=== PATIENT | female | born 1985 | race Caucasian/White ===

== ENCOUNTER 2023-03-18 21:53 | Inpatient (IN) | payer BC ==
[~2023-03-18] VITALS: Ht 157.5 cm; Wt 93.7 kg
[2023-03-18 21:56] VITALS: PULSE 86; RESP 24
[2023-03-18] MEDS ORDERED: NOREPINEPHRINE 8MG/250ML PMX 250 ML IV PRN (22:15)
[2023-03-18] MEDS ORDERED: CALCIUM GLUCONATE 100MG/ML 10ML VIAL IV NR (22:30)
[2023-03-18] MEDS ORDERED: CALCIUM GLUCONATE 2,000 MG in DEXT 5% WATER 100 ML IV NR (23:00)
[2023-03-18 23:17] LABS: BG BASE EXCESS -20.5 mmol/L (-2.0-2.0); BG CARBOXYHEMOGLOBIN 0.3 % (0.5-1.5); BG DEOXYHEMOGLOBIN 0.5 % (0.0-5.0); BG FRACTION INSPIRED OXYGEN 100; BG HCO3 ACT 9.3 mmol/L (22.0-26.0); BG METHEMOGLOBIN 0.3 % (0.0-1.5); BG OXYGEN SATURATION 99.5 % (92.0-98.5); BG OXYHEMOGLOBIN 98.9 % (94.0-97.0); BG PCO2 35.3 mmHg (35.0-45.0); BG PH 7.039 (7.350-7.450); BG PO2 406.8 mmHg (75.0-100.0); BG SAMPLE SITE RIGHT RADIAL; BG TOTAL HEMOGLOBIN 13.8 g/dL (12.0-18.0); BG VENT MODE VENT - AC
[2023-03-18 23:19] LABS: BASOPHILS % 0.3 % (0.0-2.0); HEMATOCRIT. 40.6 % (36.0-48.0); HEMOGLOBIN. 12.7 g/dL (12.0-16.0); LYMPHOCYTES % 23.1 % (20.0-50.0); MEAN CORPUSCULAR HGB CONC 31.3 g/dL (31.0-37.0); MEAN CORPUSCULAR VOLUME 95.7 fL (81.0-99.0); MEAN PLATELET VOLUME 6.7 fl (7.4-10.4); MONOCYTES % 3.2 % (2.0-8.0); NEUTROPHILS % 72.4 % (40.0-76.0); PLATELET 336 x1000/uL (130-400); RED BLOOD CELL COUNT 4.24 mill/uL (4.2-5.4); RED CELL DISTRIBUTION WIDTH 15.1 % (11.6-14.6); WHITE BLOOD COUNT 19.1 x1000/uL (4.5-11.0)
[2023-03-18 23:26] LABS: CHLORIDE 109 mEq/L (98-107); INDEX HEMOLYSI 2 (1-3); INDEX ICTERIC 1 (1-4); INDEX LIPEMIC 1 (1-3); POTASSIUM 4.7 mEq/L (3.5-5.1); SODIUM 140 mEq/L (136-145)
[2023-03-18 23:30] LABS: INR 1.1; PARTIAL THROMBOPLASTIN TIME 36.9 sec (23.4-31.0); PROTHROMBIN TIME 11.9 sec (9.6-11.0)
[2023-03-18 23:37] LABS: ALANINE AMINOTRANSFERASE 286 IU/L (13-61); ASPARTATE AMINOTRANSFERASE 583 IU/L (15-37); BILIRUBIN TOTAL 0.2 mg/dL (0.1-1.0); CALCIUM 6.8 mg/dL (8.5-10.1); CARBON DIOXIDE 12 mEq/L (21-32); CREATININE 1.2 mg/dL (0.6-1.3); PHOSPHORUS 6.4 mg/dL (2.5-4.9); PROTEIN TOTAL 6.7 g/dL (6.0-8.3); TROPONIN I HIGH SENSITIVITY 27 ng/L (<54); UREA NITROGEN BLOOD 11 mg/dL (7-21)
[2023-03-19] VITALS (99 sets, daily range): BP systolic 59–146; BP diastolic 21–106; PULSE 68–116; RESP 25–30; TEMP 88.2–99.2
[2023-03-19 00:01] LABS: HCG SCREEN NEGATIVE
[2023-03-19 00:29] LABS: GLUCOSE 411 mg/dL (70-105); LACTIC ACID 12.4 mmol/L (0.4-2.0)
[2023-03-19] MEDS ORDERED: ACETAMINOPHEN 650MG/20.3ML UDC GT PRN ×2 (02:30)
[2023-03-19] MEDS ORDERED: DIPHENHYDRAMINE 50MG/ML VIAL IV PRN (02:30)
[2023-03-19] MEDS ORDERED: DEXTROSE 50% WATER 50ML SYRINGE IV PRN ×2 (02:30→05:00)
[2023-03-19] MEDS ORDERED: PIPERACILLIN/TAZ 3.375G PREMIX 50 ML IV NR (02:30)
[2023-03-19] MEDS ORDERED: IPRATROPIUM/ALBUTEROL 0.5-3(2.5)MG/3ML NEB NEB PRN (02:30)
[2023-03-19] MEDS ORDERED: VANCOMYCIN 1G PREMIX 200 ML IV SCH ×2 (02:30→18:00)
[2023-03-19] MEDS ORDERED: BLOOD SUGAR DIAGNOSTIC STRIP TEST SCH (02:30)
[2023-03-19] MEDS ORDERED: ONDANSETRON HCL 4MG/2ML INJ IV PRN (02:30)
[2023-03-19] MEDS ORDERED: WATER IV PRN (03:00)
[2023-03-19] MEDS ORDERED: VANCOMYCIN 2,000 MG in DEXT 5% WATER 500 ML IV NR (03:00)
[2023-03-19] MEDS ORDERED: SODIUM PHOS M BASIC D BASIC IV PRN (03:00)
[2023-03-19] MEDS ORDERED: NOREPINEPHRINE 8 MG in DEXT 5% WATER 242 ML IV PRN (03:00)
[2023-03-19] MEDS ORDERED: CALCIUM GLUCONATE 2,000 MG in DEXT 5% WATER 80 ML IV PRN (03:00)
[2023-03-19] MEDS ORDERED: MAGNESIUM 2 G PREMIX 50 ML IV PRN (03:00)
[2023-03-19] MEDS ORDERED: KCL 20MEQ/100ML PREMIX 100 ML IV PRN (03:00)
[2023-03-19] MEDS ORDERED: ACETAMINOPHEN 650MG SUPP PR PRN (03:00)
[2023-03-19] MEDS ORDERED: DEXT IV PRN (03:00)
[2023-03-19] MEDS ORDERED: POTASSIUM CHLORIDE INJ 40 MEQ in DEXT 5% WATER 250 ML IV PRN (03:00)
[2023-03-19] MEDS: SODIUM CHLORIDE 0.9% 1,000 ML IV SCH ×3 (03:28→22:04)
[2023-03-19] MEDS ORDERED: INSULIN LISPRO 100 UNITS/ML SUBCUT SCH ×4 (03:30→08:20)
[2023-03-19] MEDS: PIPERACILLIN/TAZOBACTAM 3.375G in DEXT 5% WATER 50ML IV SCH ×3 (03:31→22:04)
[2023-03-19 03:43] LABS: MEAN CORPUSCULAR HEMOGLOBIN 29.6 pg (28.0-32.0); MEAN CORPUSCULAR HGB CONC 31.8 g/dL (31.0-37.0); MEAN CORPUSCULAR VOLUME 92.9 fL (81.0-99.0); MEAN PLATELET VOLUME 6.9 fl (7.4-10.4); PLATELET 330 x1000/uL (130-400); RED BLOOD CELL COUNT 4.73 mill/uL (4.2-5.4); RED CELL DISTRIBUTION WIDTH 14.9 % (11.6-14.6); WHITE BLOOD COUNT 14.9 x1000/uL (4.5-11.0)
[2023-03-19 03:49] LABS: DIFFERENTIAL COMMENT 1
[2023-03-19 03:56] LABS: ALANINE AMINOTRANSFERASE 332 IU/L (13-61); ALBUMIN 3.3 g/dL (3.4-5.0); ASPARTATE AMINOTRANSFERASE 769 IU/L (15-37); BILIRUBIN TOTAL 1.3 mg/dL (0.1-1.0); CALCIUM 7.4 mg/dL (8.5-10.1); CARBON DIOXIDE 17 mEq/L (21-32); CHLORIDE 112 mEq/L (98-107); CREATININE 1.4 mg/dL (0.6-1.3); GLUCOSE 351 mg/dL (70-105); INDEX HEMOLYSI 2 (1-3); INDEX ICTERIC 1 (1-4); INDEX LIPEMIC 1 (1-3); POTASSIUM 3.8 mEq/L (3.5-5.1); PROTEIN TOTAL 7.1 g/dL (6.0-8.3); SODIUM 142 mEq/L (136-145); UREA NITROGEN BLOOD 17 mg/dL (7-21)
[2023-03-19 04:11] LABS: PHOSPHORUS 0.7 mg/dL (2.5-4.9); TROPONIN I HIGH SENSITIVITY 204 ng/L (<54)
[2023-03-19 04:23] LABS: INR 1.2; PARTIAL THROMBOPLASTIN TIME 28.4 sec (23.4-31.0); PROTHROMBIN TIME 12.7 sec (9.6-11.0)
[2023-03-19] MEDS ORDERED: SODIUM BICARBONATE 8.4% 1 MEQ/ML 50ML SYR IV NR (05:30)
[2023-03-19] MEDS: BLOOD SUGAR DIAGNOSTIC STRIP TEST SCH ×5 (05:45→22:04)
[2023-03-19] MEDS: DEXAMETHASONE 10 MG/ML VIAL IV SCH ×3 (06:08→18:07)
[2023-03-19] MEDS ORDERED: MANNITOL 12.5G (25%) VIAL 50ML IV ONE (06:30)
[2023-03-19 08:06] LABS: CLARITY URINE CLOUDY (CLEAR); COLOR URINE YELLOW (YELLOW); GLUCOSE URINE 3+ (NEGATIVE); KETONES URINE NEGATIVE (NEGATIVE); LEUKOCYTE ESTERASE URINE NEGATIVE (NEGATIVE); NITRITE URINE NEGATIVE (NEGATIVE); OCCULT BLOOD URINE 2+ (NEGATIVE); PH URINE 5.5 (4.5-8.0); PROTEIN URINE 2+ (NEGATIVE); SPECIFIC GRAVITY URINE 1.011 (1.005-1.030); UROBILINOGEN URINE 0.2 E.U./dL (0.2-1.0)
[2023-03-19 08:08] LABS: BACTERIA URINE NONE SEEN; SQUAMOUS EPITHELIAL CELL URINE 2+ /lpf (RARE/1+); YEAST URINE NONE SEEN
[2023-03-19 08:37] LABS: BG BASE EXCESS -8.9 mmol/L (-2.0-2.0); BG CARBOXYHEMOGLOBIN 0.4 % (0.5-1.5); BG DEOXYHEMOGLOBIN 0.6 % (0.0-5.0); BG FRACTION INSPIRED OXYGEN 60; BG METHEMOGLOBIN 0.3 % (0.0-1.5); BG OXYGEN SATURATION 99.4 % (92.0-98.5); BG OXYHEMOGLOBIN 98.7 % (94.0-97.0); BG PCO2 23.8 mmHg (35.0-45.0); BG PH 7.387 (7.350-7.450); BG PO2 237.4 mmHg (75.0-100.0); BG SAMPLE SITE RIGHT BRACHIAL; BG TOTAL HEMOGLOBIN 14.6 g/dL (12.0-18.0); BG VENT MODE VENT - AC
[2023-03-19] MEDS: PANTOPRAZOLE SODIUM 40 MG/VIAL IV SCH (09:52)
[2023-03-19 10:31] LABS: *AMPHETAMINES SCREEN URINE NEGATIVE (NEGATIVE); *BARBITURATES SCREEN URINE NEGATIVE (NEGATIVE); *BENZODIAZEPINES SCREEN URINE NEGATIVE (NEGATIVE); *COCAINE SCREEN URINE NEGATIVE (NEGATIVE); CANNABINOID URINE SCREEN NEGATIVE (NEGATIVE); ECSTASY MDMA SCREEN URINE NEGATIVE (NEGATIVE); OPIATES URINE SCREEN NEGATIVE (NEGATIVE); PHENCYCLIDINE URINE SCREEN NEGATIVE (NEGATIVE)
[2023-03-19] MEDS: NOREPINEPHRINE 8MG/250ML PMX 250ML IV PRN (10:51)
[2023-03-19] MEDS: INSULIN LISPRO 100 UNITS/ML SUBCUT SCH ×2 (12:00→18:00)
[2023-03-19] MEDS ORDERED: PIPERACILLIN/TAZOBACTAM 3.375G in DEXT 5% WATER 50ML IV SCH (14:00)
[2023-03-19] MEDS ORDERED: SODIUM PHOS,M-BASIC-D-BASIC 30 MM in DEXT 5% WATER 500 ML IV NR (17:00)
[2023-03-19 17:32] LABS: PLATELET ESTIMATE NORMAL
[2023-03-19] MEDS ORDERED: VANCOMYCIN 750MG PREMIX 150 ML IV SCH (18:00)
[2023-03-19 20:25] LABS: BG BASE EXCESS -5.8 mmol/L (-2.0-2.0); BG DEOXYHEMOGLOBIN 1.7 % (0.0-5.0); BG FRACTION INSPIRED OXYGEN 40; BG HCO3 ACT 15.4 mmol/L (22.0-26.0); BG OXYGEN SATURATION 98.3 % (92.0-98.5); BG OXYHEMOGLOBIN 98.3 % (94.0-97.0); BG PCO2 20.6 mmHg (35.0-45.0); BG PH 7.491 (7.350-7.450); BG PO2 123.2 mmHg (75.0-100.0); BG SAMPLE SITE ALINE; BG TOTAL HEMOGLOBIN 12.7 g/dL (12.0-18.0); BG TOTAL RESPIRATORY RATE 30 b/min; BG VENT MODE VENT - AC
[2023-03-19] MEDS ORDERED: ENOXAPARIN 30MG/0.3ML SYR SUBCUT SCH (21:00)
[2023-03-19 21:12] LABS: HEMATOCRIT. 35.7 % (36.0-48.0); MEAN CORPUSCULAR HEMOGLOBIN 30.3 pg (28.0-32.0); MEAN CORPUSCULAR HGB CONC 33.6 g/dL (31.0-37.0); MEAN PLATELET VOLUME 6.3 fl (7.4-10.4); PLATELET 166 x1000/uL (130-400); RED BLOOD CELL COUNT 3.97 mill/uL (4.2-5.4); RED CELL DISTRIBUTION WIDTH 14.2 % (11.6-14.6); WHITE BLOOD COUNT 9.1 x1000/uL (4.5-11.0)
[2023-03-19 21:15] LABS: DIFFERENTIAL COMMENT 1
[2023-03-19 21:22] LABS: CHLORIDE 113 mEq/L (98-107); INDEX HEMOLYSI 1 (1-3); INDEX ICTERIC 1 (1-4); INDEX LIPEMIC 1 (1-3); POTASSIUM 3.5 mEq/L (3.5-5.1); SODIUM 142 mEq/L (136-145)
[2023-03-19 21:33] LABS: INR 1.1; PARTIAL THROMBOPLASTIN TIME 32.2 sec (23.4-31.0); PROTHROMBIN TIME 11.9 sec (9.6-11.0)
[2023-03-19 21:35] LABS: PLATELET ESTIMATE NORMAL
[2023-03-19 21:36] LABS: ALANINE AMINOTRANSFERASE 221 IU/L (13-61); ALBUMIN 2.6 g/dL (3.4-5.0); AMYLASE 209 IU/L (25-115); ASPARTATE AMINOTRANSFERASE 399 IU/L (15-37); BILIRUBIN DIRECT 0.3 mg/dL (0.0-0.2); BILIRUBIN TOTAL 0.9 mg/dL (0.1-1.0); CALCIUM 6.9 mg/dL (8.5-10.1); CARBON DIOXIDE 17 mEq/L (21-32); GLUCOSE 235 mg/dL (70-105); LACTATE DEHYDROGENASE 734 IU/L (100-240); PROTEIN TOTAL 5.7 g/dL (6.0-8.3); UREA NITROGEN BLOOD 33 mg/dL (7-21)
[2023-03-19 21:47] LABS: LACTIC ACID 5.6 mmol/L (0.4-2.0)
[2023-03-20] VITALS (85 sets, daily range): BP systolic 72–120; BP diastolic 31–93; PULSE 92–128; RESP 0–30; TEMP 97.4–99.4; O2SAT 100
[2023-03-20] MEDS: BLOOD SUGAR DIAGNOSTIC STRIP TEST SCH ×10 (00:05→18:15)
[2023-03-20 00:26] LABS: CLARITY URINE CLOUDY (CLEAR); COLOR URINE YELLOW (YELLOW); GLUCOSE URINE TRACE (NEGATIVE); KETONES URINE NEGATIVE (NEGATIVE); LEUKOCYTE ESTERASE URINE TRACE (NEGATIVE); NITRITE URINE NEGATIVE (NEGATIVE); OCCULT BLOOD URINE 1+ (NEGATIVE); PROTEIN URINE 2+ (NEGATIVE); SPECIFIC GRAVITY URINE 1.012 (1.005-1.030)
[2023-03-20] MEDS: DEXAMETHASONE 10 MG/ML VIAL IV SCH ×4 (00:32→17:03)
[2023-03-20] MEDS: INSULIN LISPRO 100 UNITS/ML SUBCUT SCH ×11 (00:35→18:36)
[2023-03-20 00:40] LABS: BASOPHILS % 0.3 % (0.0-2.0); EOSINOPHILS % 0.1 % (0.0-5.0); HEMATOCRIT. 33.8 % (36.0-48.0); HEMOGLOBIN. 11.6 g/dL (12.0-16.0); LYMPHOCYTES % 5.1 % (20.0-50.0); MEAN CORPUSCULAR HEMOGLOBIN 30.3 pg (28.0-32.0); MEAN CORPUSCULAR HGB CONC 34.3 g/dL (31.0-37.0); MEAN CORPUSCULAR VOLUME 88.4 fL (81.0-99.0); MEAN PLATELET VOLUME 6.3 fl (7.4-10.4); MONOCYTES % 6.5 % (2.0-8.0); PLATELET 127 x1000/uL (130-400); RED BLOOD CELL COUNT 3.82 mill/uL (4.2-5.4); RED CELL DISTRIBUTION WIDTH 14.5 % (11.6-14.6); WHITE BLOOD COUNT 10.3 x1000/uL (4.5-11.0)
[2023-03-20 00:43] LABS: DIFFERENTIAL COMMENT 1
[2023-03-20 00:50] LABS: BACTERIA URINE 2+; CALCIUM OXALATE CRYSTALS URINE 1+ /lpf; RBC URINE 0-2 /hpf (0-2); SQUAMOUS EPITHELIAL CELL URINE 1+ /lpf (RARE/1+)
[2023-03-20 00:50] LABS: INDEX HEMOLYSI 1 (1-3); INDEX ICTERIC 1 (1-4); INDEX LIPEMIC 1 (1-3)
[2023-03-20 01:19] LABS: LACTIC ACID 3.6 mmol/L (0.4-2.0)
[2023-03-20 01:39] LABS: ALANINE AMINOTRANSFERASE 205 IU/L (13-61); ALBUMIN 2.6 g/dL (3.4-5.0); AMYLASE 175 IU/L (25-115); ASPARTATE AMINOTRANSFERASE 323 IU/L (15-37); BILIRUBIN DIRECT 0.2 mg/dL (0.0-0.2); BILIRUBIN TOTAL 0.8 mg/dL (0.1-1.0); CALCIUM 6.8 mg/dL (8.5-10.1); CARBON DIOXIDE 23 mEq/L (21-32); CHLORIDE 114 mEq/L (98-107); CREATININE 2.5 mg/dL (0.6-1.3); GLUCOSE 196 mg/dL (70-105); LACTATE DEHYDROGENASE 696 IU/L (100-240); PHOSPHORUS 1.6 mg/dL (2.5-4.9); POTASSIUM 3.8 mEq/L (3.5-5.1); PROTEIN TOTAL 5.7 g/dL (6.0-8.3); SODIUM 144 mEq/L (136-145); UREA NITROGEN BLOOD 34 mg/dL (7-21)
[2023-03-20 01:44] LABS: INR 1.1; PARTIAL THROMBOPLASTIN TIME 31.6 sec (23.4-31.0); PROTHROMBIN TIME 11.9 sec (9.6-11.0)
[2023-03-20 02:20] LABS: BG BASE EXCESS -10.1 mmol/L (-2.0-2.0); BG CARBOXYHEMOGLOBIN 0.3 % (0.5-1.5); BG DEOXYHEMOGLOBIN 2.7 % (0.0-5.0); BG FRACTION INSPIRED OXYGEN 40; BG HCO3 ACT 11.1 mmol/L (22.0-26.0); BG METHEMOGLOBIN 0.3 % (0.0-1.5); BG OXYGEN SATURATION 97.3 % (92.0-98.5); BG OXYHEMOGLOBIN 96.7 % (94.0-97.0); BG PCO2 13.2 mmHg (35.0-45.0); BG PH 7.543 (7.350-7.450); BG SAMPLE SITE ALINE; BG TOTAL HEMOGLOBIN 6.9 g/dL (12.0-18.0); BG TOTAL RESPIRATORY RATE 30 b/min; BG VENT MODE VENT - AC
[2023-03-20] MEDS: NOREPINEPHRINE 8MG/250ML PMX 250ML IV PRN ×2 (04:50→18:38)
[2023-03-20] MEDS: PIPERACILLIN/TAZOBACTAM 3.375G in DEXT 5% WATER 50ML IV SCH ×2 (05:48→14:57)
[2023-03-20 06:19] LABS: CLARITY URINE TURBID (CLEAR); COLOR URINE YELLOW (YELLOW); GLUCOSE URINE TRACE (NEGATIVE); KETONES URINE NEGATIVE (NEGATIVE); LEUKOCYTE ESTERASE URINE 1+ (NEGATIVE); NITRITE URINE NEGATIVE (NEGATIVE); OCCULT BLOOD URINE 1+ (NEGATIVE); PH URINE 5.5 (4.5-8.0); PROTEIN URINE 2+ (NEGATIVE); SPECIFIC GRAVITY URINE 1.013 (1.005-1.030); UROBILINOGEN URINE 0.2 E.U./dL (0.2-1.0)
[2023-03-20 06:29] LABS: INR 1.1; PARTIAL THROMBOPLASTIN TIME 30.8 sec (23.4-31.0); PROTHROMBIN TIME 11.8 sec (9.6-11.0)
[2023-03-20 06:30] LABS: CHLORIDE 115 mEq/L (98-107); INDEX HEMOLYSI 1 (1-3); INDEX ICTERIC 1 (1-4); INDEX LIPEMIC 1 (1-3); SODIUM 144 mEq/L (136-145)
[2023-03-20 06:38] LABS: ALANINE AMINOTRANSFERASE 192 IU/L (13-61); ALBUMIN 2.6 g/dL (3.4-5.0); AMYLASE 146 IU/L (25-115); ASPARTATE AMINOTRANSFERASE 260 IU/L (15-37); BILIRUBIN DIRECT 0.3 mg/dL (0.0-0.2); BILIRUBIN TOTAL 0.9 mg/dL (0.1-1.0); CALCIUM 6.6 mg/dL (8.5-10.1); CARBON DIOXIDE 20 mEq/L (21-32); GLUCOSE 204 mg/dL (70-105); LACTATE DEHYDROGENASE 698 IU/L (100-240); PHOSPHORUS 2.6 mg/dL (2.5-4.9); PROTEIN TOTAL 5.9 g/dL (6.0-8.3); UREA NITROGEN BLOOD 39 mg/dL (7-21)
[2023-03-20 06:44] LABS: HEMATOCRIT. 36.4 % (36.0-48.0); HEMOGLOBIN. 12.1 g/dL (12.0-16.0); MEAN CORPUSCULAR HGB CONC 33.3 g/dL (31.0-37.0); MEAN PLATELET VOLUME 7.2 fl (7.4-10.4); PLATELET 144 x1000/uL (130-400); RED BLOOD CELL COUNT 4.04 mill/uL (4.2-5.4); RED CELL DISTRIBUTION WIDTH 14.9 % (11.6-14.6); WHITE BLOOD COUNT 15.9 x1000/uL (4.5-11.0)
[2023-03-20 06:45] LABS: BACTERIA URINE 3+; SQUAMOUS EPITHELIAL CELL URINE 1+ /lpf (RARE/1+); WBC URINE 15-25 /hpf (0-2)
[2023-03-20 07:18] LABS: DIFFERENTIAL COMMENT 1
[2023-03-20] MEDS: PANTOPRAZOLE SODIUM 40 MG/VIAL IV SCH (08:41)
[2023-03-20 08:42] LABS: BG BASE EXCESS -8.5 mmol/L (-2.0-2.0); BG CARBOXYHEMOGLOBIN 0.5 % (0.5-1.5); BG DEOXYHEMOGLOBIN 4.3 % (0.0-5.0); BG FRACTION INSPIRED OXYGEN 40; BG HCO3 ACT 16.4 mmol/L (22.0-26.0); BG METHEMOGLOBIN 0.1 % (0.0-1.5); BG OXYGEN SATURATION 95.7 % (92.0-98.5); BG OXYHEMOGLOBIN 95.1 % (94.0-97.0); BG PCO2 32.5 mmHg (35.0-45.0); BG PH 7.322 (7.350-7.450); BG PO2 88.3 mmHg (75.0-100.0); BG SAMPLE SITE ALINE; BG TOTAL HEMOGLOBIN 12.5 g/dL (12.0-18.0); BG VENT MODE VENT - AC
[2023-03-20] MEDS: SODIUM CHLORIDE 0.9% 1,000 ML IV SCH ×2 (08:42→18:30)
[2023-03-20] MEDS ORDERED: SODIUM BICARBONATE 8.4% 1 MEQ/ML 50ML SYR IV NR ×2 (09:00→12:00)
[2023-03-20 10:33] LABS: BG CARBOXYHEMOGLOBIN 0.3 % (0.5-1.5); BG FRACTION INSPIRED OXYGEN 100; BG HCO3 ACT 22.9 mmol/L (22.0-26.0); BG METHEMOGLOBIN 0.3 % (0.0-1.5); BG OXYHEMOGLOBIN 97.4 % (94.0-97.0); BG PCO2 39.8 mmHg (35.0-45.0); BG PH 7.378 (7.350-7.450); BG SAMPLE SITE ALINE; BG TOTAL HEMOGLOBIN 11.7 g/dL (12.0-18.0); BG VENT MODE VENT - AC
[2023-03-20 11:25] LABS: LACTIC ACID 2.3 mmol/L (0.4-2.0)
[2023-03-20 11:41] LABS: BG BASE EXCESS -5.2 mmol/L (-2.0-2.0); BG CARBOXYHEMOGLOBIN 0.1 % (0.5-1.5); BG FRACTION INSPIRED OXYGEN 100; BG HCO3 ACT 19.9 mmol/L (22.0-26.0); BG METHEMOGLOBIN 0.1 % (0.0-1.5); BG OXYHEMOGLOBIN 98.8 % (94.0-97.0); BG PH 7.348 (7.350-7.450); BG PO2 213.8 mmHg (75.0-100.0); BG SAMPLE SITE ALINE; BG TOTAL HEMOGLOBIN 12.2 g/dL (12.0-18.0); BG VENT MODE VENT - AC
[2023-03-20 12:16] LABS: HEMATOCRIT. 32.8 % (36.0-48.0); HEMOGLOBIN. 10.8 g/dL (12.0-16.0); MEAN CORPUSCULAR HEMOGLOBIN 29.7 pg (28.0-32.0); MEAN CORPUSCULAR HGB CONC 33.1 g/dL (31.0-37.0); MEAN CORPUSCULAR VOLUME 89.9 fL (81.0-99.0); MEAN PLATELET VOLUME 7.2 fl (7.4-10.4); PLATELET 125 x1000/uL (130-400); RED BLOOD CELL COUNT 3.64 mill/uL (4.2-5.4); WHITE BLOOD COUNT 18.4 x1000/uL (4.5-11.0)
[2023-03-20 12:22] LABS: INR 1.1; PARTIAL THROMBOPLASTIN TIME 29.4 sec (23.4-31.0); PROTHROMBIN TIME 11.4 sec (9.6-11.0)
[2023-03-20 12:24] LABS: BG BASE EXCESS -7.4 mmol/L (-2.0-2.0); BG CARBOXYHEMOGLOBIN 0.3 % (0.5-1.5); BG DEOXYHEMOGLOBIN 1.4 % (0.0-5.0); BG FRACTION INSPIRED OXYGEN 44; BG HCO3 ACT 22.7 mmol/L (22.0-26.0); BG METHEMOGLOBIN 0.2 % (0.0-1.5); BG OXYGEN SATURATION 98.6 % (92.0-98.5); BG OXYHEMOGLOBIN 98.1 % (94.0-97.0); BG PCO2 70.4 mmHg (35.0-45.0); BG PH 7.127 (7.350-7.450); BG PO2 203.8 mmHg (75.0-100.0); BG SAMPLE SITE ALINE; BG TOTAL HEMOGLOBIN 12.3 g/dL (12.0-18.0); BG VENT MODE NASAL CANNULA
[2023-03-20 12:28] LABS: DIFFERENTIAL COMMENT 1
[2023-03-20 12:35] LABS: CHLORIDE 114 mEq/L (98-107); INDEX HEMOLYSI 1 (1-3); INDEX ICTERIC 1 (1-4); INDEX LIPEMIC 1 (1-3); POTASSIUM 4.5 mEq/L (3.5-5.1); SODIUM 145 mEq/L (136-145)
[2023-03-20 12:39] LABS: CLARITY URINE TURBID (CLEAR); COLOR URINE YELLOW (YELLOW); GLUCOSE URINE NEGATIVE (NEGATIVE); KETONES URINE NEGATIVE (NEGATIVE); LEUKOCYTE ESTERASE URINE 2+ (NEGATIVE); NITRITE URINE NEGATIVE (NEGATIVE); OCCULT BLOOD URINE 1+ (NEGATIVE); PROTEIN URINE 1+ (NEGATIVE); SPECIFIC GRAVITY URINE 1.016 (1.005-1.030)
[2023-03-20 12:46] LABS: ALANINE AMINOTRANSFERASE 170 IU/L (13-61); ALBUMIN 2.5 g/dL (3.4-5.0); AMYLASE 90 IU/L (25-115); ASPARTATE AMINOTRANSFERASE 244 IU/L (15-37); BILIRUBIN DIRECT 0.2 mg/dL (0.0-0.2); BILIRUBIN TOTAL 0.5 mg/dL (0.1-1.0); CALCIUM 6.2 mg/dL (8.5-10.1); CARBON DIOXIDE 23 mEq/L (21-32); CREATININE 3.6 mg/dL (0.6-1.3); GLUCOSE 206 mg/dL (70-105); LACTATE DEHYDROGENASE 699 IU/L (100-240); PHOSPHORUS 3.9 mg/dL (2.5-4.9); PROTEIN TOTAL 5.8 g/dL (6.0-8.3); UREA NITROGEN BLOOD 45 mg/dL (7-21)
[2023-03-20 13:12] LABS: BACTERIA URINE 3+; SQUAMOUS EPITHELIAL CELL URINE NONE SEEN /lpf (RARE/1+)
[2023-03-20 13:13] LABS: WBC URINE 15-25 /hpf (0-2)
[2023-03-20 13:32] LABS: PLATELET ESTIMATE NORMAL
[2023-03-20 13:48] LABS: PLATELET ESTIMATE NORMAL
[2023-03-20 18:43] LABS: BG BASE EXCESS -4.2 mmol/L (-2.0-2.0); BG CARBOXYHEMOGLOBIN 0.3 % (0.5-1.5); BG DEOXYHEMOGLOBIN 0.9 % (0.0-5.0); BG FRACTION INSPIRED OXYGEN 100; BG HCO3 ACT 20.3 mmol/L (22.0-26.0); BG METHEMOGLOBIN 0.1 % (0.0-1.5); BG OXYGEN SATURATION 99.1 % (92.0-98.5); BG OXYHEMOGLOBIN 98.7 % (94.0-97.0); BG PCO2 35.1 mmHg (35.0-45.0); BG PO2 349.1 mmHg (75.0-100.0); BG SAMPLE SITE ALINE; BG TOTAL HEMOGLOBIN 11.4 g/dL (12.0-18.0); BG VENT MODE VENT - AC
[2023-03-20 19:09] LABS: HEMATOCRIT. 30.4 % (36.0-48.0); MEAN CORPUSCULAR HEMOGLOBIN 29.6 pg (28.0-32.0); MEAN CORPUSCULAR VOLUME 89.5 fL (81.0-99.0); MEAN PLATELET VOLUME 7.7 fl (7.4-10.4); PLATELET 114 x1000/uL (130-400); RED BLOOD CELL COUNT 3.39 mill/uL (4.2-5.4); RED CELL DISTRIBUTION WIDTH 15.1 % (11.6-14.6); WHITE BLOOD COUNT 18.1 x1000/uL (4.5-11.0)
[2023-03-20 19:10] LABS: DIFFERENTIAL COMMENT 1
[2023-03-20 19:14] LABS: CLARITY URINE TURBID (CLEAR); COLOR URINE YELLOW (YELLOW); GLUCOSE URINE NEGATIVE (NEGATIVE); KETONES URINE NEGATIVE (NEGATIVE); LEUKOCYTE ESTERASE URINE 2+ (NEGATIVE); NITRITE URINE NEGATIVE (NEGATIVE); OCCULT BLOOD URINE 2+ (NEGATIVE); PROTEIN URINE 1+ (NEGATIVE); UROBILINOGEN URINE 0.2 E.U./dL (0.2-1.0)
[2023-03-20 19:18] LABS: CARBON DIOXIDE 23 mEq/L (21-32); CHLORIDE 115 mEq/L (98-107); INDEX HEMOLYSI 1 (1-3); INDEX ICTERIC 1 (1-4); INDEX LIPEMIC 1 (1-3); POTASSIUM 4.7 mEq/L (3.5-5.1); SODIUM 146 mEq/L (136-145)
[2023-03-20 19:21] LABS: INR 1.1; PARTIAL THROMBOPLASTIN TIME 30.5 sec (23.4-31.0); PROTHROMBIN TIME 11.4 sec (9.6-11.0)
[2023-03-20 19:23] LABS: ALANINE AMINOTRANSFERASE 151 IU/L (13-61); ALBUMIN 2.4 g/dL (3.4-5.0); AMYLASE 60 IU/L (25-115); ASPARTATE AMINOTRANSFERASE 263 IU/L (15-37); BILIRUBIN DIRECT 0.1 mg/dL (0.0-0.2); GLUCOSE 200 mg/dL (70-105); PHOSPHORUS 3.6 mg/dL (2.5-4.9); PROTEIN TOTAL 5.5 g/dL (6.0-8.3); UREA NITROGEN BLOOD 48 mg/dL (7-21)
[2023-03-20 19:26] LABS: BILIRUBIN TOTAL 0.4 mg/dL (0.1-1.0); CREATININE 4.1 mg/dL (0.6-1.3); LACTATE DEHYDROGENASE 785 IU/L (100-240)
[2023-03-20 19:28] LABS: CALCIUM 5.9 mg/dL (8.5-10.1)
[2023-03-20 20:14] LABS: AMORPHOUS SEDIMENT URINE 1+ /lpf; BACTERIA URINE 2+; SQUAMOUS EPITHELIAL CELL URINE RARE /lpf (RARE/1+); WHITE BLOOD CELL CASTS URINE 0-5 /lpf
[2023-03-20 20:18] LABS: PLATELET ESTIMATE DECREASED
[2023-03-20] MEDS ORDERED: CALCIUM GLUCONATE 1GM PREMIX 50 ML IV NR (21:01)
== END 2023-03-20 21:03 | disposition short-term general hospital (02) | DRG 917 ==
LOC: ER 21:53 → EDBD 21:53 → CVICU 23:38
PROVIDERS: ADMIT Internal Medicine; ATTEND Internal Medicine
PROC: 5A12012 Performance of Cardiac Output, Single, Manual (ICD-10-PCS; principal; 2023-03-18)
PROC: 5A1945Z Respiratory Ventilation, 24-96 Consecutive Hours (ICD-10-PCS; 2023-03-18)
PROC: 0BH17EZ Insertion of Endotracheal Airway into Trachea, Via Natural or Artificial Opening (ICD-10-PCS; 2023-03-18)
PROC: 4A10X4Z Monitoring of Central Nervous Electrical Activity, External Approach (ICD-10-PCS; 2023-03-20)
DX: T40.411A Poisoning by fentanyl or fentanyl analogs, accidental (unintentional), initial encounter (principal); A41.9 Sepsis, unspecified organism; I46.9 Cardiac arrest, cause unspecified; Z68.37 Body mass index [BMI] 37.0-37.9, adult; J96.01 Acute respiratory failure with hypoxia; E44.1 Mild protein-calorie malnutrition; G93.1 Anoxic brain damage, not elsewhere classified; R73.9 Hyperglycemia, unspecified; Y92.89 Other specified places as the place of occurrence of the external cause
CPT/HCPCS: 31500; 36415; 36600; 71045; 71250; 74176; 76705; 78610; 80053; 80305; 81003; 82010; 82150; 82248; 82375; 82805; 82962; 82977; 83036; 83605; 83615; 83735; 84100; 84484; 84703; 85025; 86850; 86900; 87070; 92950; 93005; 94002; 94003; 94640; 95816; 99285; A9512; C9113; J0610; J1100; J1650; J1815; J2543; J3370; J3490; J7060

== ENCOUNTER 2023-03-19 02:30 | Inpatient (IN) | payer OTHER ==
[2023-03-20 22:00] VITALS: BP 111/86; PULSE 94; RESP 20; TEMP 98.1
[2023-03-20 22:15] VITALS: BP 157/111; PULSE 94; RESP 20; TEMP 98.1
[2023-03-20 22:30] VITALS: BP 125/90; PULSE 94; RESP 20; TEMP 98.1
[2023-03-20 23:48] VITALS: BP 110/89; PULSE 92; TEMP 98.1; O2SAT 100
== END 2023-03-20 22:30 | DRG 812 ==
LOC: CVICU 02:30
DX: T40.411A Poisoning by fentanyl or fentanyl analogs, accidental (unintentional), initial encounter (principal); I46.9 Cardiac arrest, cause unspecified; J96.01 Acute respiratory failure with hypoxia; G93.1 Anoxic brain damage, not elsewhere classified; Y92.89 Other specified places as the place of occurrence of the external cause; R65.10 Systemic inflammatory response syndrome (SIRS) of non-infectious origin without acute organ dysfunction; R73.9 Hyperglycemia, unspecified